=== PATIENT | male | born 1940 | race Hispanic/Latino ===

== ENCOUNTER 2019-08-29 06:43 | Day surgery (SDC) | payer OTHER ==
[~2019-08-29] VITALS: Ht 172.7 cm; Wt 117.0 kg
[~2019-08-29 06:43] MED LIST: SODIUM CHLORIDE 0.9% 1000ML 1,000 ML IV ONE
[2019-08-29 07:12] VITALS: BP 120/68
[2019-08-29] MEDS ORDERED: MENTHOL TP (08:15)
[2019-08-29] MEDS ORDERED: TRAZ-187 PO (08:15)
[2019-08-29] MEDS ORDERED: METF-527 PO (08:15)
[2019-08-29] MEDS ORDERED: ALBUHFA IH (08:15)
[2019-08-29] MEDS ORDERED: LEVO25TA54 PO (08:15)
[2019-08-29] MEDS ORDERED: VITA100012 PO (08:15)
[2019-08-29] MEDS ORDERED: TAMS-1 PO (08:15)
[2019-08-29] MEDS ORDERED: CYAN100099 PO (08:15)
[2019-08-29] MEDS ORDERED: LIRA0.6P SQ (08:15)
[2019-08-29] MEDS ORDERED: SENN8.6T20 PO (08:15)
[2019-08-29] MEDS ORDERED: FLUT16H NASAL (08:15)
[2019-08-29] MEDS ORDERED: BUSP15TA3 PO (08:15)
[2019-08-29] MEDS ORDERED: INSU100V12 SQ (08:15)
[2019-08-29] MEDS ORDERED: ATOR40TA71 PO (08:15)
[2019-08-29] MEDS ORDERED: EMPA25TA PO (08:15)
[2019-08-29] MEDS ORDERED: MIRT15TA6 PO (08:15)
[2019-08-29] MEDS ORDERED: FLUO20CA30 PO (08:15)
[2019-08-29] MEDS ORDERED: ASPI-555 PO (08:15)
[2019-08-29] MEDS ORDERED: ISOS20TA7 PO (08:15)
[2019-08-29] MEDS ORDERED: [UNRECOGNIZED DRUG - OTHER] TP (08:15)
[2019-08-29] MEDS ORDERED: LORA-726 PO (08:15)
[2019-08-29] MEDS ORDERED: CHOL200074 PO (08:15)
[2019-08-29] MEDS ORDERED: CARB-196 OP (08:15)
[2019-08-29] MEDS ORDERED: OXYC10TA89 PO (08:15)
[2019-08-29] MEDS ORDERED: BUDE10.2 IH (08:15)
[2019-08-29] MEDS ORDERED: [UNRECOGNIZED DRUG - CODE] TP (08:15)
[2019-08-29] MEDS ORDERED: LISI40TA4 PO (08:15)
[2019-08-29] MEDS ORDERED: FURO40TA5 PO (08:15)
[2019-08-29] MEDS ORDERED: METO-409 PO (08:15)
[2019-08-29] MEDS ORDERED: PROPOFOL 10 MG/ML 20ML VIAL IV ONE (08:37)
[2019-08-29 08:50] VITALS: BP 104/68
[2019-08-29 08:55] VITALS: BP 110/68
[2019-08-29 09:00] VITALS: BP 112/68
[2019-08-29 09:05] VITALS: BP 112/68
[2019-08-29 09:10] VITALS: BP 132/68
--- NOTE | 2019-08-29 09:10 | NUR ---
dc pt dc home via [place],no distress noted, denied any pain or discomforts. patient accompanied by mathieu fitzpatrick dc instructions reinforced at this time, pt nephew verbalized understaniding
== END 2019-08-29 09:10 | disposition home or self-care (01) ==
LOC: DAH 06:43 → ENDO 06:43
PROVIDERS: ATTEND Internal Medicine Gastroenterology
DX: K59.01 Slow transit constipation (principal); D12.2 Benign neoplasm of ascending colon; D12.4 Benign neoplasm of descending colon; K29.50 Unspecified chronic gastritis without bleeding; K29.80 Duodenitis without bleeding; K57.30 Diverticulosis of large intestine without perforation or abscess without bleeding; K64.8 Other hemorrhoids; K44.9 Diaphragmatic hernia without obstruction or gangrene; E78.00 Pure hypercholesterolemia, unspecified; I10 Essential (primary) hypertension; E11.9 Type 2 diabetes mellitus without complications; I25.10 Atherosclerotic heart disease of native coronary artery without angina pectoris; Z86.010 Personal history of colon polyps; Z95.0 Presence of cardiac pacemaker; Z79.899 Other long term (current) drug therapy
CPT/HCPCS: 43239; 45380; 45385; 82948 ×2; A4215; A4221; A4222; A4223; A4606; A4663; J2704; J7030